=== PATIENT | female | born 1945 | race Hispanic/Latino ===

== ENCOUNTER → 2018-05-23 | Day surgery (SDC) | payer MEDICARE ==
[2018-05-21 13:03] LABS: BASOPHILS # (AUTO) 0.1 (0.0-0.1); BASOPHILS % 0.8 % (0.0-1.0); EOSINOPHILS # (AUTO) 0.1 (0.0-0.4); EOSINOPHILS % 1.1 % (0.0-6.0); HEMATOCRIT 47.9 % (34.2-44.1); HEMOGLOBIN 15.5 g/dL (12.0-16.0); LYMPHOCYTES # (AUTO) 3.5 (1.0-3.2); LYMPHOCYTES % 41.8 % (18.0-39.1); MEAN CORPUSCULAR HGB CONC 32.4 g/dL (31-35); MEAN CORPUSCULAR VOLUME 92.6 fL (81-99); MONOCYTES # (AUTO) 0.7 (0.2-0.8); MONOCYTES % 8.5 % (4.4-11.3); NEUTROPHILS # (AUTO) 3.9 (2.1-6.9); NEUTROPHILS % 47.6 % (38.7-80.0); PLATELET COUNT 230 x10e3/uL (140-360); RED BLOOD COUNT 5.17 x10e6/uL (3.6-5.1)
[~2018-05-23] MED LIST: BYSTOLIC10 MG PO; CELEBREX100 MG PO; EPHEDRINE SULFATE INJ 50 MG/10 ML SYR ONE; FENTANYL CITRATE/PF 100MCG/2 ML INJ ONE; FLUTICASONE PRO16 GM; HYOSCYAMINE SULFATE 0.5 MG/ML AMP ONE; LOSARTAN POTASS25 MG PO; MIDAZOLAM HCL 2 MG/2 ML VIAL ONE; ONDANSETRON HCL INJ 2 MG/ML VIAL ONE; VITAMIN B12 SHOT IM; VITAMIN D32000 UNI1 PO; Z FOSAMAX PO; Z.0.METOPROLOL SUCC5 PO
--- NOTE | 2018-05-23 15:45 | Operative Report ---
DATE OF PROCEDURE: May 23, 2018 REFERRING PHYSICIAN: Dr. Juliana Teague PROCEDURES PERFORMED 1. Esophagogastroduodenoscopy with biopsies. 2. Colonoscopy with polypectomy and biopsies. INDICATIONS FOR EGD: Upper abdominal pain and nausea. INDICATIONS FOR COLONOSCOPY: Colorectal cancer screening and history of diarrhea. MEDICATION: Patient was done under MAC. Please see anesthesiologist's note. PROCEDURE: With the patient in the left lateral decubitus position, the flexible fiberoptic Olympus gastroscope was introduced into the esophagus under direct visualization without any difficulty. There was some patchy erythema noted in the distal esophagus. There was a focal nodularity noted at the GE junction that was biopsied. The scope was then advanced with ease into the stomach traversing a small hiatal hernia. The mucosa overlying the antrum and the body revealed some patchy erythema and mild to moderate edema, and biopsies were obtained and sent to stain for H. pylori. There was also a minute submucosal nodule that was noted in the antrum that was biopsied. The pylorus was of normal contour and shape. It was intubated with ease. The scope was advanced all the way to the 2nd portion of the duodenum. A minute nodule was noted in the periampullary area and that was biopsied. The duodenal bulb appeared to be within normal limits. The scope was then withdrawn back into the stomach and retroflexed. The mucosa overlying the fundus and the cardia appeared to be within normal limits. The scope was then straightened out. The stomach was decompressed. The scope was subsequently withdrawn. Patient tolerated the procedure well. IMPRESSION 1. Distal esophagitis, mild. 2. Minimal nodularity at the gastroesophageal junction, biopsied. 3. Small hiatal hernia. 4. Gastritis, biopsied. Biopsies sent to stain for Helicobacter. pylori. 5. Antral submucosal nodule, biopsied. 6. Duodenal nodule, periampullary area, biopsied. PLAN: Follow up histology. Initiate Protonix 40 mg 1 p.o. q.a.m. a.c. Patient was then turned around. After adequate lubrication of the anal canal, a flexible fiberoptic Olympus colonoscope was inserted into the rectum with ease and advanced all the way to the cecum. The scope was then withdrawn slowly. Mucosa overlying the cecum appeared to be within normal limits. One polyp was snared from the ascending colon and transverse appeared to be within normal limits. One polyp was hot biopsied from the proximal descending colon. Mild inflammatory changes were noted in the left colon and random biopsies were obtained. Diverticular disease was noted to involve the descending and the sigmoid colon. The mucosa overlying the rectum also revealed some inflammatory changes and biopsies were obtained. The scope was then retroflexed into the distal rectum. Small internal hemorrhoids were noted, none of which was actively bleeding. The scope was then straightened out. It was subsequently withdrawn after securing an adequate stool specimen that was sent for the appropriate stool studies. Patient tolerated the procedure well. IMPRESSION 1. Ascending colon polyp, snared. 2. Descending colon polyp, hot biopsied. 3. Mild patchy left-sided colitis. 4. Diverticulosis. 5. Proctitis, mild. 6. Internal hemorrhoids, none actively bleeding. PLAN: Follow up histology. Follow up stool studies. Initiate Bentyl 10 mg 1 p.o. t.i.d. VSL #3 one p.o. daily. Patient might benefit from a followup colonoscopy in 3-5 years. Job#: [id number] RI cc:JULIANA TEAGUE MD
[2018-05-23 15:46] LABS: WBC,FECAL (FECAL LACTOFERRIN) NEGATIVE (NEGATIVE)
[2018-05-24 12:32] LABS: C DIFFICILE TOXIN A&B AMP PROB NEGATIVE (NEGATIVE)
== END | disposition home or self-care (01) ==
LOC: OR 11:25
PROVIDERS: ATTEND Internal Medicine Gastroenterology
DX: K51.50 Left sided colitis without complications (principal); D12.2 Benign neoplasm of ascending colon; D12.4 Benign neoplasm of descending colon; K31.7 Polyp of stomach and duodenum; K29.50 Unspecified chronic gastritis without bleeding; K20.9 Esophagitis, unspecified; K22.8 Other specified diseases of esophagus; K31.89 Other diseases of stomach and duodenum; K44.9 Diaphragmatic hernia without obstruction or gangrene; K57.30 Diverticulosis of large intestine without perforation or abscess without bleeding; K62.89 Other specified diseases of anus and rectum; K64.8 Other hemorrhoids; I10 Essential (primary) hypertension; E66.01 Morbid (severe) obesity due to excess calories; G47.33 Obstructive sleep apnea (adult) (pediatric); G57.93 Unspecified mononeuropathy of bilateral lower limbs; Z88.9 Allergy status to unspecified drugs, medicaments and biological substances; Z01.810 Encounter for preprocedural cardiovascular examination; Z01.812 Encounter for preprocedural laboratory examination; Z68.34 Body mass index [BMI] 34.0-34.9, adult
CPT/HCPCS: 36415; 43239; 45380; 45384; 45385; 83630; 83993; 85025; 87045; 87177; 87328; 87493; 88305; 88312; 93005; J1980; J2250; J2405; 45378

== ENCOUNTER → 2018-09-12 | Day surgery (SDC) | payer MEDICARE ==
[2018-09-11 09:29] LABS: BASOPHILS # (AUTO) 0.1 (0.0-0.1); BASOPHILS % 0.7 % (0.0-1.0); EOSINOPHILS # (AUTO) 0.1 (0.0-0.4); EOSINOPHILS % 1.6 % (0.0-6.0); HEMATOCRIT 47.6 % (34.2-44.1); LYMPHOCYTES # (AUTO) 3.3 (1.0-3.2); LYMPHOCYTES % 40.2 % (18.0-39.1); MEAN CORPUSCULAR HEMOGLOBIN 29.6 pg (28-32); MEAN CORPUSCULAR HGB CONC 31.5 g/dL (31-35); MEAN CORPUSCULAR VOLUME 93.9 fL (81-99); MONOCYTES # (AUTO) 0.6 (0.2-0.8); MONOCYTES % 7.3 % (4.4-11.3); NEUTROPHILS % 49.8 % (38.7-80.0); RED BLOOD COUNT 5.07 x10e6/uL (3.6-5.1); RED CELL DISTRIBUTION WIDTH 14.2 % (11.7-14.4)
[2018-09-11 09:30] LABS: PLATELET COUNT 70 x10e3/uL (140-360)
--- NOTE | 2018-09-11 09:41 | Diagnostic Imaging Report ---
PROCEDURE: Frontal and lateral views of the chest. COMPARISON: None. INDICATIONS: INTERSTIM PLACEMENT FINDINGS: Lines/tubes: None. Lungs: Moderate lung volumes. Mild patchy bibasilar opacities, likely atelectasis. No evidence of lobar consolidation or pulmonary edema. Pleura: There is no pleural effusion or pneumothorax. Heart and mediastinum: The heart and the mediastinum are normal. Bones: Bilateral rib fracture deformities. Fixation hardware of the upper thoracic spine with bilateral mariam and screw construct. Partially seen fixation hardware involving the left proximal humerus. Likely post traumatic deformity of the right proximal humerus, incompletely visualized. No evidence of acute displaced fracture. IMPRESSION: No evidence of pneumonia or pulmonary edema. Sequela of prior bony trauma as above. Dictated by: YAO BANKS M.D. on 09/11/2018 at 9:51 Electronically approved by: YAO BANKS M.D. on 09/11/2018 at 9:51
[~2018-09-12] MED LIST changes: +ACETAMINOPHEN 1000 MG/100 ML 100 ML IV ONE; +BUPIVACAINE 0.5%/EPI 30 ML SDV INJ ONE; +CLINDAMYCIN 600MG / 50ML 50 ML IV ONE; +DEXAMETHASONE SOD PHOS INJ 4 MG/ML VIAL ONE; -EPHEDRINE SULFATE INJ 50 MG/10 ML SYR ONE; -HYOSCYAMINE SULFATE 0.5 MG/ML AMP ONE; +LIDOCAINE 2%/ EPINEPHRINE 20ML MDV ONE; +LIDOCAINE HCL 2% LOCAL INJ 5 ML SDV VIAL INJ ONE; -MIDAZOLAM HCL 2 MG/2 ML VIAL ONE; +PIPER-TAZ 3.375 GM 50 ML ONE; +PROLIA60 MG/1 ML; +PROPOFOL IV EMULSION 10 MG/ML 20 ML VIAL ONE; +ROCURONIUM BROMIDE 10 MG/ML 5ML VIAL ONE; +SEVOFLURANE INHAL SOLN 250 ML PEN BTL ONE; +SUCCINYLCHOLINE 200 MG/10 ML SYR ONE
--- OUTSIDE RECORDS SUMMARY | 2018-09-12 07:53 | XMS REPORT ---
Author Author [facility] Address Unknown Phone Unavailable Care Team Providers Care Blocker And Polisher Name Role Phone LEANN NAVA Unavailable Unavailable Problems This patient has no known problems. Allergies, Adverse Reactions, Alerts This patient has no known allergies or adverse reactions. Medications This patient has no known medications. Results Test Description Test Time Test Comments Text Results Atomic Results Result Comments CHEST 2 VIEWS 2018-09-11 09:51:00 [place] [address] Patient Name: ALICE KUMAR MR #: [id number] : 1945 Age/Sex: 73/F Req #: [id number] Adm Physician: Ordered by: LEANN NAVA MD Report #: [id number] Location: OR Room/Bed: Procedure: [id number] DX/CHEST 2 VIEWS Exam Date: 09/11/18 Exam Time: 0903 REPORT STATUS: Signed PROCEDURE: Frontal and lateral views of the chest. COMPARISON: None. INDICATIONS: INTERSTIM PLACEMENT FINDINGS: Lines/tubes: None. Lungs: Moderate lung volumes. Mild patchy bibasilar opacities, likely atelectasis. No evidence of lobar consolidation or pulmonary edema. Pleura: There is no pleural effusion or pneumothorax. Heart and mediastinum: The heart and the mediastinum are normal. Bones: Bilateral rib fracture deformities. Fixation hardware of the upper thoracic spine with bilateral mariam and screw construct. Partially seen fixation hardware involving the left proximal humerus. Likely post traumatic deformity of the right proximal humerus, incompletely visualized. No evidence of acute displaced fracture. IMPRESSION: No evidence of pneumonia or pulmonary edema. Sequela of prior bony trauma as above. Dictated by: YAO BANKS M.D. on 09/11/2018 at 9:51 Electronically approved by: YAO BANKS M.D. on 09/11/2018 at 9:51 Dictated By: YAO BANKS MD 0 Transcribed By: GREG on 09/11/18950 COPY TO: LEANN NAVA MD
--- NOTE | 2018-09-12 10:07 | Diagnostic Imaging Report ---
PROCEDURE:X-RAY PELVIS, AP/LAT VIEW COMPARISON:None. INDICATIONS:INTERSTEM EVALUATION FINDINGS: Diffuse bony osteopenia. There are no fractures, dislocations, lytic or blastic lesions. Pain generator is noted posteriorly overlying the left lateral iliac crest with single lead extending anterior to the sacrum. There are two anchor screws overlying the symphysis pubis. Vascular calcification present. Degenerative changes of the lower lumbar spine. The soft-tissues are unremarkable. CONCLUSION: Pain generator and probe as described above. Cisco Chan D.O. Dictated by: Cisco Chan D.O. on 09/12/2018 at 10:17 Electronically approved by: Cisco Chan D.O. on 09/12/2018 at 10:17
--- NOTE | 2018-09-12 10:15 | Diagnostic Imaging Report ---
PROCEDURE:SACRUM X-RAY TECHNIQUE: INDICATION: COMPARISON:[facility], DX, PELVIS AP 1-2 VIEWS, 09/12/2018, 9:27. FINDINGS:Diffuse bony osteopenia. There are no fractures, dislocations, lytic or blastic lesions. Pain generator is noted posteriorly only on the lateral view. Lead extends anterior to the sacrum. There are two anchor screws overlying the symphysis pubis. Vascular calcification present. Degenerative changes of the lower lumbar spine. The soft-tissues are unremarkable. CONCLUSION: Pain generator and probe as described above. Cisco Chan D.O. Dictated by: Cisco Chan D.O. on 09/12/2018 at 10:25 Electronically approved by: Cisco Chan D.O. on 09/12/2018 at 10:25
[2018-09-12 15:02] VITALS: BP 109/61
--- NOTE | 2018-09-12 19:56 | Operative Report ---
DATE OF PROCEDURE: September 12, 2018 PREOPERATIVE DIAGNOSIS: Refractory urge incontinence with discharged InterStim implant. POSTOPERATIVE DIAGNOSIS: Refractory urge incontinence with discharged InterStim implant. OPERATION PERFORMED 1. Incision for placement of fine quadripolar electrode into the right foramen S3. 2. Replacement of left-sided InterStim nerve stimulator. 3. Fluoroscopic guidance for needle placement. 4. Complex analysis and programming. ANESTHESIA: General. COMPLICATIONS: None. CLINICAL SUMMARY: Shana Birmingham is a 73-year-old woman with overactive bladder and refractory urge incontinence. She has done well with an InterStim implant. Over the last several months, the patient's implant has become less effective, and then it stopped working altogether. Evaluation in the office revealed that the battery is fully discharged. The patient had preoperative films that showed that her left-sided lead seems to have migrated in a cephalad fashion, and is different than the originally placed position. The patient is brought to the operating room for the above procedure. She is aware of the risk of bleeding, infection, injury to adjacent structures, failure of the procedure, need for additional procedures, and she elected to proceed. OPERATIVE PROCEDURE IN DETAIL: Informed consent was verified. Shana Birmingham was properly identified and taken to the operating room where anesthesia was uneventfully begun. The patient was then carefully and gently re-positioned in the prone position with all pressure points carefully well padded. Her back and buttocks were prepared and draped in the usual sterile fashion. A needle was placed into the right foramen S3. Placement was verified with fluoroscopic imaging as well as with direct observation of plantar flexion of the great toe and bellowing by lifting of the perineum. This is all in response to stimulation with the external stimulation box. The needle was removed. A guide was placed. Peripheral incision was made to the guidewire and then introducer sheath was placed with a marker and brought to the mid point of the sacrum. The lead was then placed through the sheath and positioned properly utilizing fluoroscopic guidance so that all 4 leads were anterior to the sacrum. The sheath was then pulled with continuous fluoroscopy, thus deploying the lead into the perisacral tissue. Incision was then made overlying the nerve stimulator. The nerve stimulator was explanted. It was disconnected from the old lead. The tunnelling tool was utilized to bring the right lead into the pocket on the left side. Copious irrigation was performed and verified hemostasis. The lead was cleansed of bodily fluid with sterile water and thoroughly dried. It was then placed into the InterStim generator with the tip clearly visible in the distal most part of the header. The single set screw was then set in order to secure the lead into the generator. We copiously irrigated all incisions. We verified hemostasis. The generator was placed into the pocket. The programming head was then placed over the nerve stimulator and impedance was verified to be appropriate for all parameters. We then closed both incisions in 2 layers utilizing interrupted absorbable suture. Mastisol, Steri-Strips and dressings were applied. The patient was then uneventfully reversed from anesthesia and taken to the recovery room in stable condition. There were no complications during the procedure. The patient tolerated the procedure well. Sponge, needle and instrument counts were reported as correct x2 at the end of the case. We decided against explanting the old lead due to the fact that it is not causing the patient any problems at this time. The patient was then programmed to the lead of optimum sensation and given explicit instructions in utilizing her InterStim generator, even though she is very familiar with this system. The plans will be to follow the patient up in the next few weeks to ensure her InterStim is working appropriately, and, of course, will continue to follow. Job#: [id number] cc:MADDI TEAGUE MD
== END | disposition home or self-care (01) ==
LOC: OR 07:51
PROVIDERS: ATTEND Urology
DX: T85.113A Breakdown (mechanical) of implanted electronic neurostimulator, generator, initial encounter (principal); T85.890A Other specified complication of nervous system prosthetic devices, implants and grafts, initial encounter; N39.41 Urge incontinence; I72.9 Aneurysm of unspecified site; G62.9 Polyneuropathy, unspecified; G47.33 Obstructive sleep apnea (adult) (pediatric); I10 Essential (primary) hypertension; E03.9 Hypothyroidism, unspecified; R73.03 Prediabetes; I45.10 Unspecified right bundle-branch block; Y83.8 Other surgical procedures as the cause of abnormal reaction of the patient, or of later complication, without mention of misadventure at the time of the procedure; Z01.810 Encounter for preprocedural cardiovascular examination; Z01.812 Encounter for preprocedural laboratory examination; Z01.818 Encounter for other preprocedural examination
CPT/HCPCS: 36415 ×2; 64581; 64590; 71046; 72170; 72220; 76000; 82948; 85025; 86850; 86900; 88300; 93005; 95972; C1778; C1787; C1894; J0131; J1100; J2001 ×2; J2405; J2543; J2704; L8679; L8696

== ENCOUNTER → 2019-01-15 | Outpatient (CLI) | payer MEDICARE ==
[~2019-01-15] MED LIST changes: -ACETAMINOPHEN 1000 MG/100 ML 100 ML IV ONE; -BUPIVACAINE 0.5%/EPI 30 ML SDV INJ ONE; -CLINDAMYCIN 600MG / 50ML 50 ML IV ONE; -DEXAMETHASONE SOD PHOS INJ 4 MG/ML VIAL ONE; -FENTANYL CITRATE/PF 100MCG/2 ML INJ ONE; -LIDOCAINE 2%/ EPINEPHRINE 20ML MDV ONE; -LIDOCAINE HCL 2% LOCAL INJ 5 ML SDV VIAL INJ ONE; -ONDANSETRON HCL INJ 2 MG/ML VIAL ONE; -PIPER-TAZ 3.375 GM 50 ML ONE; -PROPOFOL IV EMULSION 10 MG/ML 20 ML VIAL ONE; -ROCURONIUM BROMIDE 10 MG/ML 5ML VIAL ONE; -SEVOFLURANE INHAL SOLN 250 ML PEN BTL ONE; -SUCCINYLCHOLINE 200 MG/10 ML SYR ONE
--- NOTE | 2019-01-15 13:23 | Diagnostic Imaging Report ---
Exam: Pelvis radiograph-1 view, sacral radiographs-3 views Clinical History: Neuromuscular bladder dysfunction. Comparison: None. Findings: There is a left-sided stimulator device, partially seen. The leads course through the left hemipelvis and terminate overlying the bilateral sacrum. No evidence of discontinuity or kinking. No evidence of acute fracture or malalignment. There are mild degenerative changes of bilateral hips, sacroiliac joints, and pubic symphysis. Impression: No acute radiographic abnormality. Left-sided stimulator devices above. Signed by: Dr. Flakito Jameson MD on 01/15/2019 1:19 PM
== END ==
LOC: RAD 12:17
PROVIDERS: ATTEND Urology
DX: N31.9 Neuromuscular dysfunction of bladder, unspecified (principal)
CPT/HCPCS: 72170; 72220

== ENCOUNTER → 2020-05-28 | Outpatient (CLI) | payer MEDICARE ==
[~2020-05-28] MED LIST changes: +IOPAMIDOL 370 MG/ML 200 ML INFUS..BTL INJ ONE; +SODIUM CHLORIDE 0.9% 250ML 250 ML ONE; +SODIUM CHLORIDE 0.9% 500ML 500 ML ONE; +SODIUM CHLORIDE 0.9% 50ML 50 ML ONE
[2020-05-28 08:41] LABS: CREATININE, SERUM 0.97 mg/dL (0.57-1.11)
== END ==
LOC: CT 07:55
PROVIDERS: ATTEND Internal Medicine Gastroenterology
DX: R10.10 Upper abdominal pain, unspecified (principal)
CPT/HCPCS: 36415; 74177; 82565; 84520; 96360; J7040; J7050; Q9967

== ENCOUNTER → 2022-02-23 | Outpatient (CLI) | payer MEDICARE ==
[~2022-02-23] MED LIST changes: -IOPAMIDOL 370 MG/ML 200 ML INFUS..BTL INJ ONE; -SODIUM CHLORIDE 0.9% 250ML 250 ML ONE; -SODIUM CHLORIDE 0.9% 500ML 500 ML ONE; -SODIUM CHLORIDE 0.9% 50ML 50 ML ONE
== END ==
LOC: RAD 14:16
PROVIDERS: ATTEND Urology
DX: N31.9 Neuromuscular dysfunction of bladder, unspecified (principal); N32.81 Overactive bladder
CPT/HCPCS: 72170; 72220